=== PATIENT | male | born 1960 | race Caucasian/White ===

== ENCOUNTER 2017-05-06 07:45 | Emergency (ER) | payer OTHER ==
[~2017-05-06] VITALS: Ht 193 cm; Wt 107.5 kg
[2017-05-06 09:49] LABS: PATH.CAST-FLAG NOT PRESENT; SPERM-FLAG NOT PRESENT; SRC-FLAG NOT PRESENT; XTAL-FLAG NOT PRESENT; YLC-FLAG NOT PRESENT
[2017-05-06 09:54] LABS: ASPARTATE AMINO TRANSFERASE 48 U/L (15-37); BLOOD UREA NITROGEN 15 mg/dL (7-18)
[2017-05-06] MEDS ORDERED: KETOROLAC 30 MG/1 ML ONE (10:29)
[2017-05-06] MEDS ORDERED: KETOROLAC 30 MG/1 ML IM ONE (10:30)
[2017-05-06 11:43] VITALS: BP 136/80
== END 2017-05-06 12:28 | disposition home or self-care (01) ==
LOC: ED 12:20
DX: R10.30 Lower abdominal pain, unspecified (principal); R11.2 Nausea with vomiting, unspecified; M62.82 Rhabdomyolysis; I10 Essential (primary) hypertension; E11.9 Type 2 diabetes mellitus without complications; Z90.49 Acquired absence of other specified parts of digestive tract
CPT/HCPCS: 36415; 74176; 80053; 81001; 82550; 83690; 85025; 96372; 99285; J1885